=== PATIENT | male | born 1945 | race Caucasian/White ===

== ENCOUNTER 2019-02-22 06:56 | Day surgery (SDC) | payer BC ==
[~2019-02-22 06:56] MED LIST: KETOROLAC TROMETHAMINE 0.45% 4 DROP/0.4 ML DROPERETTE OD PRN
[2019-02-22] MEDS ORDERED: LIDOCAINE 1%/PHENYLEPHRINE 1.5% 1 ML VIAL ONE (07:09)
[2019-02-22] MEDS: TROPICAMIDE 1% OPH SOLN 15 ML OD PRN ×3 (07:43→07:59)
[2019-02-22] MEDS: BESIFLOXACIN HCL 0.6% OPH SUSP 5 ML BOTTLE OD PRN ×4 (07:43→08:40)
[2019-02-22] MEDS: TETRACAINE HCL 0.5% OPH SOLN 4 ML OD PRN ×3 (07:43→08:14)
[2019-02-22] MEDS: CYCLOPENTOLATE 0.2%/PHENYLEPHRINE 1% OPH SOLN 2 ML OD PRN ×3 (07:43→07:59)
[2019-02-22] MEDS ORDERED: MIDAZOLAM 2 MG/2 ML INJ ONE (07:57)
[2019-02-22] MEDS ORDERED: FENTANYL CITRATE INJ/PF 100 MCG/2 ML AMPUL ONE (07:57)
[2019-02-22] MEDS: EPINEPHRINE INJ/PF 1 MG/1 ML AMPULE ONE ×2 (08:24→08:27)
[2019-02-22] MEDS: CHONDR SU A NA/HYALUR INTRAOC KIT (SURGICARE) ONE ×2 (08:24→08:27)
[2019-02-22] MEDS: DORZOLAMIDE HCL 2%/TIMOLOL MALEAT 0.5% OPH SOLN 10 ML OD PRN ×2 (08:24→08:40)
--- NOTE | 2019-02-23 07:47 | Operative Report ---
Operative Report-[facility] Operative Report: DATE OF SURGERY: 02/22/2019 PREOPERATIVE DIAGNOSIS: Cataract, right eye POSTOPERATIVE DIAGNOSIS: Cataract, right eye OPERATION: Cataract extraction with insertion of an toric IOL of the right eye. Intraocular Lens Model: [16.0 sn6at3 rotated to 139 degrees] Patient underwent surgery because having difficulty with nighttime driving SURGEON: Arian Santos MD ANESTHESIA: Topical PROCEDURE: After obtaining appropriate consent, the patient's right eye was prepped and draped in a sterile fashion as well as the surgeon in the sterile manner and cataract surgery was started. First a paracentesis blade was used to make a side-port incision. Viscoelastic was used to inflate the anterior chamber. Next a 2.4 mm incision was made with a 2.4 mm blade, clear corneal temporarily. A continuous capsulorrhexis was made using a cystotome and Utrata forceps. Following this hydrodissection was carried out to make the carley fully loose and mobile and it was rotated. Following this, a divide and conquer technique was used to phacoemulsify the carley. The remaining cortex was removed with an irrigation/aspiration. Provisc was instilled into the capsular bag to inflate the bag. The intraocular lens was placed. The remaining viscoelastic material was removed with irrigation/aspiration. Following this, the incision was found to be watertight. Besivance and Cosopt was instilled into the eye and a protective shield was placed over the eye. The patient was reurned to the postoperative recovery in a stable condition.
== END 2019-02-22 09:12 | disposition home or self-care (01) ==
LOC: SC 06:56
PROVIDERS: ATTEND Internal Medicine
DX: H25.813 Combined forms of age-related cataract, bilateral (principal); H17.89 Other corneal scars and opacities; Z85.828 Personal history of other malignant neoplasm of skin
CPT/HCPCS: 66984; 00142; V2787; J2250; J3490 ×2; J0171; J2370; 142; J3010

== ENCOUNTER 2019-03-15 07:37 | Day surgery (SDC) | payer BC ==
[~2019-03-15 07:37] MED LIST changes: -KETOROLAC TROMETHAMINE 0.45% 4 DROP/0.4 ML DROPERETTE OD PRN; +KETOROLAC TROMETHAMINE 0.45% 4 DROP/0.4 ML DROPERETTE OS PRN
[2019-03-15] MEDS: TROPICAMIDE 1% OPH SOLN 15 ML OS PRN ×3 (08:20→08:40)
[2019-03-15] MEDS: BESIFLOXACIN HCL 0.6% OPH SUSP 5 ML BOTTLE OS PRN ×4 (08:20→09:28)
[2019-03-15] MEDS: CYCLOPENTOLATE 0.2%/PHENYLEPHRINE 1% OPH SOLN 2 ML OS PRN ×3 (08:20→08:40)
[2019-03-15] MEDS: TETRACAINE HCL 0.5% OPH SOLN 4 ML OS PRN ×3 (08:21→09:03)
[2019-03-15] MEDS ORDERED: MIDAZOLAM 2 MG/2 ML INJ ONE (08:42)
[2019-03-15] MEDS ORDERED: FENTANYL CITRATE INJ/PF 100 MCG/2 ML AMPUL ONE (08:44)
[2019-03-15] MEDS: EPINEPHRINE INJ/PF 1 MG/1 ML AMPULE ONE ×2 (09:16)
[2019-03-15] MEDS: CHONDR SU A NA/HYALUR INTRAOC KIT (SURGICARE) ONE ×2 (09:16)
[2019-03-15] MEDS: LIDOCAINE 1%/PHENYLEPHRINE 1.5% 1 ML VIAL ONE ×2 (09:16)
[2019-03-15] MEDS: DORZOLAMIDE HCL 2%/TIMOLOL MALEAT 0.5% OPH SOLN 10 ML OS PRN ×2 (09:28)
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
== END 2019-03-15 10:05 | disposition home or self-care (01) ==
LOC: SC 07:37
PROVIDERS: ATTEND Internal Medicine
DX: H25.812 Combined forms of age-related cataract, left eye (principal); Z96.1 Presence of intraocular lens
CPT/HCPCS: 66984; V2787; J2250; J3490 ×2; J0171; J3010; J2370